=== PATIENT | female | born 1970 | race Caucasian/White ===

== ENCOUNTER 2025-03-06 08:00 | Outpatient (CLI) | payer OTHER, MEDICAID ==
[2025-03-06] MEDS ORDERED: ATEN-236 PO (14:03)
[2025-03-06] MEDS ORDERED: HYDR25TA4 PO (14:03)
[2025-03-06] MEDS ORDERED: MONT-40 PO (14:03)
[2025-03-06] MEDS ORDERED: ALBU8HFA (14:03)
[2025-03-06] MEDS ORDERED: GLIM1TAB57 PO (14:03)
[2025-03-06] MEDS ORDERED: MELO-102 PO (14:03)
[2025-03-06] MEDS ORDERED: TRAZ-251 PO (14:03)
[2025-03-06] MEDS ORDERED: ESCI20TA39 PO (14:03)
[2025-03-06] MEDS ORDERED: ALB0.5UD (14:03)
[2025-03-06] MEDS ORDERED: METF-1203 PO (14:03)
[2025-03-06] MEDS ORDERED: SIMV-42 PO (14:03)
[2025-03-06] MEDS ORDERED: LISI40TA13 PO (14:03)
[2025-03-06] MEDS ORDERED: IBUP-24 PO (14:06)
[2025-03-06] MEDS ORDERED: GABA-1405 PO (14:06)
[2025-03-06 15:21] LABS: BASOPHILS # (AUTO) 0.1 X10'3 (0-0.2); EOSINOPHILS # (AUTO) 0.2 X10'3 (0-0.9); EOSINOPHILS % (AUTO) 1.8 % (0-6); LYMPHOCYTES # (AUTO) 1.8 X10'3 (1.1-4.8); LYMPHOCYTES % (AUTO) 20.3 % (21-51); MEAN CORPUSCULAR VOLUME 84.9 FL (78-98); MONOCYTES # (AUTO) 0.7 X10'3 (0-0.9); MONOCYTES % (AUTO) 7.7 % (2-12); NEUTROPHILS # (AUTO) 6.1 X10'3 (1.8-7.7); NEUTROPHILS % (AUTO) 69.2 % (42-75); PRE OP HEMATOCRIT 40.2 % (35.0-45.0); PRE OP HEMOGLOBIN 13.3 g/dL (12.0-16.0); PRE OP PLATELET COUNT 281 X10'3 (140-440); PRE OP WHITE BLOOD COUNT 8.8 10'3 (4.8-10.8); RED BLOOD COUNT 4.74 X10'6 (4.20-5.60); RED CELL DISTRIBUTION WIDTH 15.8 % (11.5-14.5)
[2025-03-06 15:25] LABS: ALBUMIN 3.4 G/DL (3.4-5.0); ALBUMIN/GLOBULIN RATIO 0.8 (1.1-1.5); ALKALINE PHOSPHATASE 123 IU/L (46-116); BLOOD UREA NITROGEN 18 MG/DL (7-18); BUN/CREATININE RATIO 17.5 (10.0-20.0); CALCIUM 8.8 MG/DL (8.5-10.1); CHLORIDE 106 MMOL/L (99-107); CREATININE 1.03 MG/DL (0.40-0.90); PRE OP ALT 22 U/L (30-65); PRE OP ANION GAP 10 (8-16); PRE OP AST 10 U/L (10-37); PRE OP BILIRUB, TOTAL 0.3 MG/DL (0.0-1.0); PRE OP GLUCOSE 177 MG/DL (70-104); PRE OP POTASSIUM 3.9 MMOL/L (3.4-5.1); PRE OP SODIUM 147 MMOL/L (135-145); TOTAL PROTEIN 7.6 G/DL (6.4-8.2); eGFR 56 ML/MIN
== END 2025-03-06 23:00 | disposition home or self-care (01) ==
LOC: LAB 08:00 → EDSTATUS 03-07 08:45
PROVIDERS: ATTEND Surgery
DX: Z01.818 Encounter for other preprocedural examination (principal); R92.8 Other abnormal and inconclusive findings on diagnostic imaging of breast; J44.9 Chronic obstructive pulmonary disease, unspecified; I10 Essential (primary) hypertension; E11.9 Type 2 diabetes mellitus without complications; Z88.8 Allergy status to other drugs, medicaments and biological substances; M19.90 Unspecified osteoarthritis, unspecified site; F41.9 Anxiety disorder, unspecified; F32.A Depression, unspecified; F43.10 Post-traumatic stress disorder, unspecified; Z98.890 Other specified postprocedural states
CPT/HCPCS: 36415; 80053; 85025; J7120

== ENCOUNTER 2025-05-23 07:21 | Day surgery (SDC) | payer OTHER, MEDICAID ==
[2025-05-22 14:30] LABS: MEAN PLATELET VOLUME 7.0 FL (7.4-10.4); PRE OP HEMATOCRIT 40.7 % (35.0-45.0); PRE OP HEMOGLOBIN 13.8 g/dL (12.0-16.0); PRE OP PLATELET COUNT 304 X10'3 (140-440); PRE OP WHITE BLOOD COUNT 9.5 10'3 (4.8-10.8); RED CELL DISTRIBUTION WIDTH 15.1 % (11.5-14.5)
--- NOTE | 2025-05-22 14:39 | RADIOLOGY REPORT ---
DI CHEST,TWO VIEWS CLINICAL HISTORY: PREOP COMPARISON: None TECHNIQUE: Frontal and lateral view of the chest was obtained FINDINGS: Lines and Tubes: None Lungs: No focal consolidation. Pleura: No effusion. No pneumothorax. Cardiomediastinal contours: Unremarkable Bones: No acute osseous abnormality. IMPRESSION: No acute cardiopulmonary disease.
[2025-05-22 14:40] LABS: CREATININE 0.94 MG/DL (0.40-0.90); PRE OP ALT 34 U/L (30-65); PRE OP ANION GAP 9 (8-16); PRE OP AST 23 U/L (10-37); PRE OP BILIRUB, TOTAL 0.5 MG/DL (0.0-1.0); PRE OP GLUCOSE 157 MG/DL (70-104); PRE OP POTASSIUM 4.4 MMOL/L (3.4-5.1); PRE OP SODIUM 140 MMOL/L (135-145); TOTAL CARBON DIOXIDE 27.4 MMOL/L (24-32); eGFR 62 ML/MIN
[2025-05-23] VITALS (11 sets, daily range): BP systolic 103–129; BP diastolic 53–79; PULSE 50–66; RESP 10–18; TEMP 97.7; O2SAT 98–100
[~2025-05-23] VITALS: Ht 180.3 cm; Wt 206.4 kg
[2025-05-23] MEDS: Cefazolin 3 GM/100ML NS IVPB 100 ML IV ONE (05:30)
[~2025-05-23 07:21] MED LIST: ALB0.5UD NEB; ALBU8HFA INH; ATEN-236 PO; ESCI20TA39 PO; GABA-1405 PO; GLIM1TAB57 PO; HYDR25TA4 PO; IBUP-24 PO; LISI40TA20 PO; MELO-102 PO; METF-1203 PO; MONT-40 PO; OMEPRAZOLE PO; SIMV-42 PO; TRAZ-251 PO
[2025-05-23] MEDS: ringers solution, lacted 1,000 ML IV SCH (08:13)
[2025-05-23] MEDS: albuterol 2.5 MG/3 ML nebule NEB ONE (09:13)
[2025-05-23] MEDS ORDERED: BUPIVAcaine 0.25% w/Epi /PF 30ml vial ONE (09:15)
[2025-05-23] MEDS ORDERED: LIDOcaine 1% (10mg/ml)w/preservative inj. 20ml MDV ONE (09:15)
[2025-05-23] MEDS ORDERED: fentaNYL/PF 50MCG/1 ML 2ML syringe ONE (09:53)
[2025-05-23] MEDS ORDERED: midazolam 1 mg/ML 2ml injection ONE (09:53)
[2025-05-23] MEDS ORDERED: propofol inj 20 ML IV ONE ×4 (10:14→10:27)
[2025-05-23] MEDS ORDERED: labetalol 20mg/4ml (5mg/ml) syringe IV PRN (11:00)
[2025-05-23] MEDS ORDERED: hydrALAZINE 20mg/ml inj. IV PRN (11:00)
[2025-05-23] MEDS ORDERED: ondansetron/PF 4mg/2ml inj IV PRN (11:00)
[2025-05-23] MEDS ORDERED: ringers solution, lacted 1,000 ML IV SCH (11:00)
[2025-05-23] MEDS ORDERED: HYDROmorphone/PF 0.2 MG/ML SYRINGE IV PRN (11:00)
[2025-05-23] MEDS ORDERED: acetaminophen 1,000mg/100ml IV 100 ML IV PRN (11:00)
--- NOTE | 2025-05-23 11:05 | OPERATIVE REPORT ---
Operative Report Providers to ~ Date of Procedure: May 23, 2025 Pre-Operative Diagnosis: Right nipple discharge Post-Operative Diagnosis SAME as PRE-Op Procedure Performed Right major ductal excision Surgeon: Clarisse Barros MD [employer] Land[employer] Operator NONE Anesthesiologist: Yoselin Levi Type of Anesthesia: Other Findings: Grossly normal tissue Complications None Prosthetics\Implants used: None Estimated Blood Loss: Less than 25 cc Specimen Removed: Right retroareolar tissue Description of Procedure: The patient is identified in the supine position with the right arm extended. IV conscious sedation was induced. The patient was prepped and draped in the usual sterile fashion. Prior to surgery preoperative antibiotics were administered 1 hour prior to the patient's incision. SCDs were applied. 25 cc of local was administered as a field block. A curvilinear incision was made 2 cm from the nipple inferiorly. A flap was raised superiorly undermining the nipple. The underlying breast tissue was then excised with the LigaSure. The specimen was oriented and sent for pathologic study in formalin. The wound was thoroughly irrigated. Hemostasis was obtained. A hemostatic agent is infused w ithin the cavity. Incision was then closed with interrupted 3-0 Vicryl pop-off for the deep layers and a running 3-0 Stratafix suture for skin. A mesh dressing and Dermabond was applied. A pressure dressing is applied over this. The patient was taken to the PAR in stable condition. Estimated blood loss less than 25 cc. Final sponge and needle count was correct x2 Counts repoted as correct: Yes CLARISSE BARROS MD May 23, 2025 11:05
--- NOTE | 2025-05-23 14:44 | PROCEDURE NOTE - Respiratory ---
Procedure Note-Respiratory Providers to CC Copies To 1: CLARISSE WILLETT MD Procedure Name: This is a spirometry study dated May 22, 2025. Spirometry measurements: Both the forced vital capacity and the FEV1 are in the low to normal range. The FEV1 ratio is normal. The flow rates are normal with the exception of the terminal flow rate which shows some decreased. Bronchodilator was not administered as part of the study. Conclusion: This study shows very mild abnormality. There is evidence for obstructive ventilatory defect although it appears to be exceedingly mild. We have no previous studies for comparison. MAULIK YORK MD May 23, 2025 14:44
== END 2025-05-23 11:58 | disposition home or self-care (01) ==
LOC: PAS 07:21
PROVIDERS: ATTEND Surgery
DX: N64.52 Nipple discharge (principal); I10 Essential (primary) hypertension; E11.9 Type 2 diabetes mellitus without complications; E78.5 Hyperlipidemia, unspecified; E66.9 Obesity, unspecified; K21.9 Gastro-esophageal reflux disease without esophagitis; J44.9 Chronic obstructive pulmonary disease, unspecified; F41.9 Anxiety disorder, unspecified; F32.A Depression, unspecified; G47.33 Obstructive sleep apnea (adult) (pediatric); F43.10 Post-traumatic stress disorder, unspecified; M79.7 Fibromyalgia; M19.90 Unspecified osteoarthritis, unspecified site; Z86.73 Personal history of transient ischemic attack (TIA), and cerebral infarction without residual deficits; Z79.84 Long term (current) use of oral hypoglycemic drugs; Z79.899 Other long term (current) drug therapy; Z90.49 Acquired absence of other specified parts of digestive tract; Z98.890 Other specified postprocedural states; Z68.44 Body mass index [BMI] 60.0-69.9, adult
CPT/HCPCS: 19120; 36415; 71046; 80053; 82948; 85025; 94010; 94640; 94760; J0665; J0690; J2250; J2704; J3010; J3490; J7030; J7120; Z7506; Z7508; Z7512; A4215; A4618; A6449; A7000